=== PATIENT | female | born 1960 | race Caucasian/White ===

== ENCOUNTER 2016-11-29 14:31 | Emergency (ER) | payer MEDICARE, OTHER ==
--- NOTE | 2016-11-29 14:51 | ERNOTE ---
Integumentary HPI - Narrative Date of Service: 11/29/16 - General Presenting Symptoms: insect bite Time Seen by Provider: 11/29/16 14:42 Source: patient Exam Limitations: no limitations - Immun/Allergies/Home Medications Immunizations: IMMUNIZATION HX Immunizations Up to Date Yes History of Influenza Vaccine No Hx Pneumococcal Vaccination No Allergies/Adverse Reactions: Allergies Allergy/AdvReac Type Severity Reaction Status Date / Time benzonatate Allergy Verified 11/29/16 14:41 [From Elmer Danielson] Home Medications: HOME MEDICATIONS Aspirin 325 mg PO DAILY 06/26/13 [Last Taken Unknown] Metoprolol Tartrate [Lopressor] 12.5 mg PO BID 06/26/13 [Last Taken Unknown] Albuterol Sulfate [Ventolin Hfa] 2 puff IH Q4H PRN 03/17/14 [Last Taken Unknown] Albuterol Sulfate/Ipratropium [Duoneb 2.5-0.5MG/3ML Soln] 3 ml IH QID 03/17/14 [ Last Taken Unknown] Levothyroxine Sodium [Synthroid] 88 mcg PO DAILY 03/17/14 [Last Taken Unknown] Pravastatin Sodium 20 mg PO HS 03/17/14 [Last Taken Unknown] Isosorbide Mononitrate [Imdur] 30 mg PO DAILY 12/12/14 [Last Taken Unknown] Ciprofloxacin/Hydrocortisone [Cipro Hc Otic Suspension] 3 drop RIGHT EAR QID # 10 ml 11/12/16 [Last Taken Unknown] predniSONE [Prednisone] 3 tab PO DAILY #9 tab 11/29/16 [Last Taken Unknown] - History of Present Illness Narrative: Pt. comes in with c/o redness from insect bites from her L elbow and R hand that extends up R arm that started yesterday. Pt. denies any SOB, CP, NVD, fever, recent illness or injury. Pt. denies any alleviating or aggravating factors or prehosital treatment. Review of Systems - Review of Systems Constitutional: Present: no symptoms reported. Absent: recent illness, fever, chills, weakness, fatigue, malaise EYE: Present: no symptoms reported ENT: Present: no symptoms reported Respiratory: Present: no symptoms reported. Absent: shortness of breath, cough , wheezing Cardiology: Present: no symptoms reported. Absent: chest pain, palpitations, edema Skin: Present: change in color - redness L elbow, R hand redness to R mid upper arm All Other Systems: All systems neg except as marked - Patient's Past Medical History Patient History - Medical: Depression, Hypothyroidism Patient History - Cardiac/Respiratory: Coronary Heart Disease, Hypertension, Other Patient History - Cancer: Other Patient History - Surgical Procedures: Appendectomy, Cardiac stent, Hysterectomy , Other Patient History - Other: None LMP (females 10-50): Menopausal - Social History Living Situations: home Abuse History: No History of abuse Psych History: Hx of Depression Does anyone smoke in the home?: Yes Smoking Status: Current every day smoker Alcohol Use: none Drug Use: none - Immunizations Immunizations Up to Date: Yes Hx Pneumococcal Vaccination: No History of Influenza Vaccine: No Physical Exam - Physical Exam General Appearance: Present: wd/wn, alert, no apparent distress Eye Exam: Normal inspection: bilateral, PERRL: bilateral, EOMI: bilateral Ears, Nose, Throat: Present: normal ENT inspection, normal pharynx Neck: Present: normal inspection, nontender. Absent: lymphadenopathy (R), lymphadenopathy (L) Respiratory: Present: no respiratory distress, normal breath sounds, no accessory muscle use, chest nontender, lungs clear Cardiovascular/Chest: Present: regular rate, rhythm, no murmur, normal peripheral pulses Gastrointestinal/Abdominal: Present: normal bowel sounds, nontender, nondistended, soft, no organomegaly Extremity Exam: Present: normal range of motion, extremity edema - R hand L elbow Neurological Exam: Present: alert, oriented, normal mood/affect, no motor/ sensory deficits Skin Exam: Present: warm/dry, other - Redness L elbow and R hand to R upper arm ED Progress - Date and Time Seen: Date and Time: 11/29/16 15:05 Feel that this is likely an allergic reaction with secondary cellulitis due to histamine reaction. - Results and Orders Patient's Lab Results:: I have reviewed the patient's lab results. - Vital Signs Patient's Vital Signs:: I have reviewed the patient's vital signs. Vital Signs: Vital Signs 11/29/16 14:37 Temperature 37.0 C Pulse Rate 71 Respiratory 16 Rate Blood Pressure 97/54 O2 Sat by Pulse 97 Oximetry - Progress/Reassessment Chief Complaint: Cellulitis Departure Clinical Impression: Allergic reaction Qualifiers: Encounter type: initial encounter Qualified Code(s): T78.40XA - Allergy, unspecified, initial encounter Insect bite Qualifiers: Encounter type: initial encounter Qualified Code(s): W57.XXXA - Bitten or stung by nonvenomous insect and other nonvenomous arthropods, initial encounter Cellulitis Qualifiers: Site of cellulitis: extremity Site of cellulitis of extremity: upper extremity Laterality: unspecified laterality Qualified Code(s): L03.119 - Cellulitis of unspecified part of limb - Departure Disposition: Home self-care Condition: Good Instructions: Allergies, [id number], Cellulitis, Adult, [id number] Additional Instructions: Please follow up with primary provider in 2-3 days. Please continue Benadryl every 6 hours for allergic reaction Prescriptions: predniSONE [Prednisone] 3 tab PO DAILY #9 tab
[2016-11-29 14:52] VITALS: BP 101/60
[2016-11-29] MEDS ORDERED: diphenhydrAMINE HCL 50 MG/ML VIAL IM ONE (14:52)
[2016-11-29] MEDS ORDERED: METHYLPREDNISOLONE ACETATE 80 MG/ML VIAL IM ONE (14:52)
[2016-11-29] MEDS ORDERED: METHYLPREDNISOLONE ACETATE 80 MG/ML VIAL ONE (14:56)
[2016-11-29] MEDS ORDERED: diphenhydrAMINE HCL 50 MG/ML VIAL ONE (14:56)
[2016-11-29 15:00] LABS: Hemoglobin 13.6 gm/dL (12.5-16.0); Mean Cell Volume 85.7 fl (78-100); Mean Corpuscular Hemoglobin 29.1 pg (27-31); Mean Platelet Volume 8.6 fl (6.0-9.5); Neutrophil # 4.7 K/mm3 (1.3-6.0); Neutrophil % 63.2 % (42-75.0); Platelet Count 275 K/mm3 (150-450); Red Blood Count 4.67 M/mm3 (4.2-5.4); Red Cell Distribution Width 12.7 % (11.5-14.0); White Blood Count 7.5 K/mm3 (4.0-10.5)
[2016-11-29 15:12] LABS: Albumin * 3.2 gm/dl (3.4-5.0); Anion Gap 12.2 mmol/L (6.8-13.8); BUN/Creatinine Ratio 14.9 (9.0-21.6); Bilirubin, Total 0.5 mg/dL (0.0-1.1); Ca. Corrected For Albumin 9.2 mg/dL (8.4-10.2); Calcium * 8.9 mg/dL (7.9-10.9); Carbon Dioxide 27.6 mmol/L (24-32.6); Potassium 3.8 mmol/L (3.4-4.6); Total Protein 7.2 gm/dL (6.2-8.2); Uric Acid 2.8 mg/dL (2.6-7.2)
== END 2016-11-29 15:39 | disposition home or self-care (01) ==
LOC: ER 14:31
DX: T78.40XA Allergy, unspecified, initial encounter (principal); W57.XXXA Bitten or stung by nonvenomous insect and other nonvenomous arthropods, initial encounter; L03.119 Cellulitis of unspecified part of limb; F17.200 Nicotine dependence, unspecified, uncomplicated